=== PATIENT | male | born 1940 | race Caucasian/White ===

== ENCOUNTER → 2016-12-08 | Outpatient (CLI) | payer MEDICARE, BC ==
[~2016-12-08] MED LIST: ASPIRIN EC81 MG PO; BETAPACE (GENER80 MG PO; BIPAP INH; CO Q-10400 MG PO; ELIQUIS5 MG PO; ENTRESTO 24 MG1 EACH PO; ENTRESTO 49 MG1 EACH PO; FLOMAX0.4 MG PO; IRON236 MG PO; LASIX40 MG PO; LEVAQUIN 250 M250 MG PO; LEXAPRO10 MG PO; LIPITOR40 MG PO; LUTEIN20 MG PO; MIDAMOR5 MG PO; NORCO 5-325 TA1 EACH PO; POTASSIUM CHLO20 ME1 PO; PYRIDIUM100 MG PO; SKELAXIN800 MG PO; SOTALOL120 MG PO; TOPROL XL 5050 MG PO; ZAROXOLYN2.5 MG PO
[2016-12-08 09:23] LABS: ALBUMIN 3.9 gm/dL (3.5-5.0); ANION GAP 11.2 (10.0-19.0); CALCIUM 7.8 mg/dL (8.5-10.5); CREATININE 1.3 mg/dL (0.6-1.3); POTASSIUM 4.2 mMol/L (3.7-5.1); TOTAL BILIRUBIN 0.7 mg/dL (0.0-1.5); TOTAL PROTEIN 6.7 g/dL (6.0-8.4)
== END | disposition disaster alternative care site (69) ==
LOC: LNHI 08:58
PROVIDERS: Internal Medicine Cardiovascular Disease
DX: I25.5 Ischemic cardiomyopathy (principal); I50.42 Chronic combined systolic (congestive) and diastolic (congestive) heart failure; I50.9 Heart failure, unspecified

== ENCOUNTER 2016-12-09 11:52 | Day surgery (SDC) | payer MEDICARE, BC ==
[~2016-12-09] VITALS: Ht 172.7 cm; Wt 73.9 kg
--- NOTE | ~2016-12-09 | OR ---
PATIENT'S NAME: PASCALE GUNN [facility] AGE: 76 Y [address] ROOM: [place] [address] LOCATION: [facility] [place] ADMIT DATE: 12/09/2016 OR/Procedure Report DISCHARGE DATE: 12/09/2016 FAMILY PHYSICIAN: Britney Ann MD ATTENDING PHYSICIAN: Jamaal Petersen SURGEON: Jamaal Petersen DO GLASSWARE VERIFIER: DATE OF PROCEDURE: 12/09/2016 PREOPERATIVE DIAGNOSIS: BiV-ICD generator at normal battery depletion. POSTOPERATIVE DIAGNOSIS: BiV-ICD generator at normal battery depletion. PROCEDURE: Removal and exchange of BiV-ICD generator. REFERRING: Gina Lynn MD BRIEF HISTORY: Mr. Gunn is a 76-year-old white male with above-noted diagnosis, had his device placed in 2012. He has been found to have recent development of SUMA, however, normal battery depletion, and he has been brought today for exchange of his device. The previous incision was marked with surgical marker, opened, leads and generator removed from the pocket. The old generator, which is a Medtronic model R058QGW, serial number [id number] was removed and the new generator, which is a [employer] ClearView™ Audioagen YOUNG ADULT LIBRARIAN, model G150, serial #[id number] was connected to the leads and leads are placed into the pocket. Appropriate sensing and pacing was appreciated. Lead thresholds were within normal limits, all less than 1.5, and the incision was closed in a layered fashion. Dressing was applied. He was transferred to the outpatient recovery in stable condition. JAMAAL PETERSEN DO MCB/modl /[id number] d: 12/13/161913 t: 12/14/16 0743, OPERATIVE SUMMARY
[~2016-12-09 11:52] MED LIST changes: -BETAPACE (GENER80 MG PO; -ENTRESTO 24 MG1 EACH PO; -LEVAQUIN 250 M250 MG PO; -NORCO 5-325 TA1 EACH PO; -PYRIDIUM100 MG PO
[2016-12-09 12:58] LABS: BILIRUBIN URINE NEGATIVE (NEGATIVE); BLOOD URINE NEGATIVE /UL (NEGATIVE); COLOR URINE YELLOW (YELLOW); GLUCOSE URINE NEGATIVE (NEGATIVE); KETONE URINE NEGATIVE (NEGATIVE); LEUKOCYTES URINE NEGATIVE /UL (NEGATIVE); NITRITE URINE NEGATIVE (NEGATIVE); PROTEIN URINE NEGATIVE (NEGATIVE); TURBIDITY URINE CLEAR (CLEAR); UROBILINOGEN URINE NORMAL (NORMAL)
[2016-12-09 13:01] LABS: INR - (THERAPEUTIC) 1.06 (0.92-1.07); PROTIME 11.1 SECONDS (9.8-11.4)
[2016-12-09 13:07] LABS: ALBUMIN 4.2 gm/dL (3.5-5.0); CALCIUM 8.4 mg/dL (8.5-10.5); CREATININE 1.3 mg/dL (0.6-1.3); PHOSPHORUS 3.5 mg/dL (2.5-4.9)
[2016-12-09] MEDS ORDERED: NORCO 5-325 TA1 EACH PO (16:07)
[2017-01-10] MEDS ORDERED: NORCO 5-325 TA1 EACH PO (09:39)
[2017-01-10] MEDS ORDERED: PYRIDIUM100 MG PO (09:41)
[2017-01-10] MEDS ORDERED: LEVAQUIN 250 M250 MG PO (09:42)
== END 2016-12-09 16:25 | disposition disaster alternative care site (69) ==
LOC: GSDC 11:52 → GPCU 11:53 → EDSTATUS 12:00 → GPOC 12:00 → GSDC 16:25
PROVIDERS: Thoracic Surgery (Cardiothoracic Vascular Surgery)
PROC: 0JPT0PZ Removal of Cardiac Rhythm Related Device from Trunk Subcutaneous Tissue and Fascia, Open Approach (ICD-10-PCS; principal; 2016-12-09)
PROC: 0JH609Z Insertion of Cardiac Resynchronization Defibrillator Pulse Generator into Chest Subcutaneous Tissue and Fascia, Open Approach (ICD-10-PCS; 2016-12-09)
DX: Z45.02 Encounter for adjustment and management of automatic implantable cardiac defibrillator (principal); I25.5 Ischemic cardiomyopathy
CPT/HCPCS: C1882; J0690; J7030

== ENCOUNTER → 2017-01-10 | Day surgery (SDC) | payer MEDICARE, BC ==
[~2017-01-10] VITALS: Ht 172.7 cm; Wt 71.4 kg
[~2017-01-10] MED LIST changes: +BETAPACE (GENER80 MG PO; +ENTRESTO 24 MG1 EACH PO; +LEVAQUIN 250 M250 MG PO; +NORCO 5-325 TA1 EACH PO; +PYRIDIUM100 MG PO
--- NOTE | ~2017-01-10 | OR ---
PATIENT'S NAME: PASCALE WEISS [facility] AGE: 76 Y [address] ROOM: [place], [place] [address] LOCATION: [facility] [place] ADMIT DATE: 01/10/2017 OR/Procedure Report DISCHARGE DATE: FAMILY PHYSICIAN: Britney Ann MD ATTENDING PHYSICIAN: CHRISTINE YOUNG SURGEON: Christine Young MD MARBLE MACHINE OPERATOR: None. DATE OF PROCEDURE: 01/10/2017 PREOPERATIVE DIAGNOSES: 1. Benign prostatic hyperplasia with bladder outlet obstruction, status post previous laser photovaporization of the prostate. 2. Lower urinary tract symptoms including nocturia, urinary hesitancy, and straining to void. 3. History of elevated PSA. POSTOPERATIVE DIAGNOSES: 1. Benign prostatic hyperplasia with bladder outlet obstruction, status post previous laser photovaporization of the prostate. 2. Lower urinary tract symptoms including nocturia, urinary hesitancy, and straining to void. 3. History of elevated PSA. OPERATION PERFORMED: Cystoscopy with UroLift procedure (prostatic urethral lift). INDICATIONS FOR PROCEDURE: The patient is a pleasant 76-year-old male with history of BPH and lower urinary tract symptoms for which he had underwent a previous laser prostatic vaporization on December 31, 2010. He did quite well following that procedure for period of time but has since developed obstructive symptoms again and on recent cystoscopy was found to have an obstructing prostatic urethra. He had continued symptoms despite pharmacologic therapy with tamsulosin. He was also having quite bothersome nocturia and we did try an anticholinergic, but he was having difficulties with retention on the 1st night trying, so he no longer continued that medication. The patient was explained the risks, benefits, indications, and alternatives to above procedure and wished to proceed and consented freely. DESCRIPTION OF OPERATION: The patient was brought back to the operating room, where he was placed positioned in supine position. Patient identification, procedure site and procedure was then verified. We also did verify that the patient received an IV Levaquin antibiotic within an hour of beginning the procedure. The patient then underwent successful administration of monitored anesthesia care. The patient was then moved and placed in a low lithotomy position. He was then prepped and draped in the usual sterile fashion. I PATIENT'S NAME: PASCALE WEISS [facility] AGE: 76 Y [address] ROOM: [place], [place] [address] LOCATION: [facility] [place] ADMIT DATE: 01/10/2017 OR/Procedure Report DISCHARGE DATE: FAMILY PHYSICIAN: Britney Ann MD ATTENDING PHYSICIAN: CHRISTINE YOUNG then began by advancing a 20-Cymraes cystoscope sheath with long bridge and 0 degree lens per urethra. His anterior urethra was within normal limits. His posterior urethra was notable for moderate bilobar hyperplasia of the prostate. His bladder did have evidence of moderate bladder trabeculation noted throughout. There was no evidence of any bladder tumors, cellules, or diverticula. His ureteral orifices were noted to be in their orthotopic location. He did not have a median prostatic lobe. The cystoscope bridge was then replaced with the UroLift implant delivery device. The first treatment site was the patient's right side approximately 1.5 cm distal to the bladder neck. The distal tip of the delivery device was then angled laterally approximately 20 degrees at this position to compress the lateral lobe. The trigger was pulled thereby deploying a needle containing the implant through the prostate. The needle was then retracted, allowing one end of the implant to be delivered to the capsular surface of the prostate. The implant was then tensioned to assure capsular seating and removal of slack monofilament. The device was then angled back toward midline and slowly advanced proximally until verification with cystoscopy of the monofilament being centered in the delivery bay. With a final triggering, the urethral end piece was then affixed to the monofilament, thereby tailoring the size and tension of the implant. Excess filament was severed with this maneuver. The device was then readvanced into the bladder. The above identical sequence was then repeated on the patient's left side. I then reinspected for successful placement of each implant as well as the degree of lateral lobe obstruction remaining. Two additional implants were delivered just proximal to the verumontanum in the same fashion. Again one on the patient's right side and one on the left. A total of 4 implants were delivered successfully. A final cystoscopy was performed to inspect the location and state of each implant to assure proper seating and location. Final inspection also revealed an open prostatic urethra with irrigation flow turned off. I did leave approximately 200 mL of irrigation fluid in his bladder to assist with his voiding trial. The cystoscope had been removed. The patient was then taken out of the lithotomy position, he was then awoken from monitored anesthesia care, transferred to recovery bed and transported to the recovery room in good condition. COMPLICATIONS: None. DRAINS: None. ESTIMATED BLOOD LOSS: Less than 10 mL. FOLLOWUP PLAN: We will have the patient undergo a voiding trial today in clinic prior to being discharged home. If he successfully passes a trial of void, we will then plan to see him back in Urology Clinic in 2 weeks for followup. PATIENT'S NAME: PASCALE WEISS [facility] AGE: 76 Y [address] ROOM: [place], [place] [address] LOCATION: [facility] [place] ADMIT DATE: 01/10/2017 OR/Procedure Report DISCHARGE DATE: FAMILY PHYSICIAN: Britney Ann MD ATTENDING PHYSICIAN: CHRISTINE YOUNG CHRISTINE YOUNG MD GP/modl /[id number] CC: MD Britney Freire MD d: 01/10/17 1602 t: 01/18/17 0826, OPERATIVE SUMMARY
[2017-01-10 08:34] LABS: BASOPHIL % 0.3 %; EOSINOPHIL # 0.1 K/uL (0.0-0.5); HEMATOCRIT 28.6 % (37.0-53.0); HEMOGLOBIN 9.4 g/dL (11.0-16.0); IMMATURE GRANULOCYTE % 0.3 %; LYMPHOCYTE # 0.8 K/uL (0.8-4.0); LYMPHOCYTE % 13.3 %; MCH 33.1 pg (27.0-34.0); MCHC 32.9 gm/dL (32.0-36.5); MCV 100.7 fl (83.0-98.0); MONOCYTE # 0.6 K/uL (0.0-1.0); MONOCYTE % 9.4 %; MPV 9.9 fl (9.4-12.4); NEUTROPHIL # (ANC) 4.7 K/uL (1.4-9.0); NEUTROPHIL % 75.7 %; NRBC % 0 /100WBC (0-0.00); PLATELET COUNT 126 K/uL (150-450); RBC 2.84 M/uL (3.50-5.50); RDW-CV 14.2 % (11.9-14.6); WBC 6.3 K/uL (4.0-11.0)
[2017-01-10 08:52] LABS: ANION GAP 12.3 (10.0-19.0); CALCIUM 8.1 mg/dL (8.5-10.5); CREATININE 1.6 mg/dL (0.6-1.3); POTASSIUM 3.3 mMol/L (3.7-5.1); TOTAL BILIRUBIN 1.2 mg/dL (0.0-1.5); TOTAL PROTEIN 7.3 g/dL (6.0-8.4)
== END | disposition disaster alternative care site (69) ==
LOC: GPOC 01-09 13:00 → GSDC 07:58 → GPOC 08:00
PROVIDERS: Urology
PROC: 0T7D8DZ Dilation of Urethra with Intraluminal Device, Via Natural or Artificial Opening Endoscopic (ICD-10-PCS; principal; 2017-01-10)
DX: N40.1 Benign prostatic hyperplasia with lower urinary tract symptoms (principal); N13.8 Other obstructive and reflux uropathy; R35.1 Nocturia; R39.11 Hesitancy of micturition; F32.9 Major depressive disorder, single episode, unspecified; K64.9 Unspecified hemorrhoids; R97.20 Elevated prostate specific antigen [PSA]; Z90.79 Acquired absence of other genital organ(s)
CPT/HCPCS: J1956; J2001; J7030; L8699

== ENCOUNTER → 2017-01-24 | Outpatient (CLI) | payer MEDICARE, BC ==
[2017-01-24 14:16] LABS: ANION GAP 12.2 (10.0-19.0); CALCIUM 8.2 mg/dL (8.5-10.5); CREATININE 1.5 mg/dL (0.6-1.3); POTASSIUM 4.2 mMol/L (3.7-5.1); TOTAL PROTEIN 6.8 g/dL (6.0-8.4)
[2017-01-24 14:18] LABS: TOTAL BILIRUBIN 0.8 mg/dL (0.0-1.5)
== END ==
LOC: LNHI 13:47
PROVIDERS: Internal Medicine Interventional Cardiology
DX: I48.0 Paroxysmal atrial fibrillation (principal); I25.5 Ischemic cardiomyopathy

== ENCOUNTER 2017-03-08 15:00 | Observation (INO) | payer MEDICARE, BC ==
[~2017-03-08] VITALS: Ht 165.1 cm; Wt 75.1 kg
--- NOTE | ~2017-03-08 | CON ---
PATIENT'S NAME: PASCALE GUNN [facility] AGE: 76 Y [address] ROOM: [id number] [place], [place] [address] LOCATION: [facility] ADMIT DATE: 03/08/2017 Consultation DISCHARGE DATE: FAMILY PHYSICIAN: Britney Ann MD ATTENDING PHYSICIAN: SARAVANAN KNIGHT REFERRING PHYSICIAN: DIRK RETANA MD REQUESTING PROVIDER: Dr. Joaquin. REASON FOR CONSULTATION: Status post ICD shock. HISTORY OF PRESENTING ILLNESS: The patient is a very pleasant 76-year-old male, who is very well known to me. The last time I saw him in clinic was in January 2017. He has history of nonischemic cardiomyopathy as well as chronic systolic and diastolic heart failure with NYHA Class II symptoms. He has had a history of BiV-ICD that was implanted several years ago. His last device interrogation was on January 31, 2017. He has had history of atrial fibrillation and VFib, status post mitral valve repair. The patient's last heart catheterization was in 2014 where his LAD stent was patent. He had disease in small diagonal branches, for which medical therapy was recommended. He did have mitral valve repair in 2003. His last echocardiogram was done in April 2016 where his left ventricular systolic function was 40%. He had hknk-kr-ytxfaefx mitral annular calcification, mild MR, twxphjka-ib-cqiwbj TR, restrictive diastolic dysfunction, mild pulmonary hypertension with RV systolic pressure of 42, severe right atrial enlargement. He has seen EP recently in [place] in November 2016, where he did have the generator replaced for the BiV-ICD. His atrial lead was capped because it was not capturing well, and also he was noted to be in atrial fibrillation. His last stress test was done in 07/2016 where he had mostly a fixed defect in the inferior and inferolateral acosta without any reversible defect, suggestive of ischemia. Unfortunately, he has been recently diagnosed with large B-cell lymphoma, for which he has an appointment with Dr. Metzger on Monday. The patient has been in his usual state of health, and he had not experienced any chest pain, heaviness, tightness, pressure. He also reports no palpitations or dizziness. He does not have any shortness of breath, PND, orthopnea, or significant lower extremity edema. He has been tolerating all PATIENT'S NAME: PASCALE GUNN [facility] AGE: 76 Y [address] ROOM: [place] [address] LOCATION: [facility] ADMIT DATE: 03/08/2017 Consultation DISCHARGE DATE: FAMILY PHYSICIAN: Britney Ann MD ATTENDING PHYSICIAN: SARAVANAN KNIGHT his medications fairly well without any adverse reactions, and he has been compliant with his medications. He did have lunch earlier today, and he reports that he noted his heart racing and felt dizzy and fell down, and then his defibrillator went off, and they called our clinic, and he was advised to come to the emergency room. The patient is now admitted on telemetry floor. He is completely normal. He reports that after that episode happened, he came back to consciousness fairly quickly; he did not have any aura, no cardiac symptoms after the event, and he is doing very well at this time. No fever, chills, stroke-like symptoms. No changes in his vision or speech or swallowing. No nausea, vomiting, diarrhea, or constipation. PAST MEDICAL HISTORY: 1. Chronic combined systolic and diastolic heart failure. 2. History of syncope. 3. History of atrial fibrillation. 4. History of VFib. 5. Dyslipidemia. 6. Hypertension. 7. Arthritis. 8. Asthma. 9. Chronic interstitial lung disease. 10. Shingles. 11. CKD. PAST SURGICAL HISTORY: Mitral valve repair in 2003. FAMILY HISTORY: No premature coronary artery disease or sudden cardiac . SOCIAL HISTORY: The patient is . He does not smoke. No illicit drug abuse or alcohol abuse. He follows a regular low-fat and low-salt diet. REVIEW OF SYSTEMS: All review of systems discussed with the patient. Pertinent positives and negatives mentioned in the history of presenting illness. PHYSICAL EXAMINATION: VITAL SIGNS: Blood pressure is 120/70, heart rate is in the 60s, underlying rhythm atrial fibrillation, respirations 14, afebrile, O2 sats greater than 90% on room air. HEENT: Sclerae white. Extraocular movements intact. Mucous membranes moist. Head: Atraumatic. PATIENT'S NAME: PASCALE GUNN [facility] AGE: 76 Y [address] ROOM: [place] [address] LOCATION: [facility] ADMIT DATE: 03/08/2017 Consultation DISCHARGE DATE: FAMILY PHYSICIAN: Britney Ann MD ATTENDING PHYSICIAN: SARAVANAN KNIGHT SKIN: Warm and dry. NECK: Supple. HEART: S1, S2. Regular rate and rhythm. A 2/6 systolic murmur at the right lower sternal border. LUNGS: Good air exchange bilaterally. No crackles or wheezing. ABDOMEN: Soft. Bowel sounds positive. EXTREMITIES: Trace lower extremity edema. MUSCULOSKELETAL: Good range of motion. PSYCH: The patient is alert and oriented to time, place, and person, and not in any apparent distress. LABORATORY DATA: EKG: Atrial fibrillation with underlying BiV paced beats. Sodium 140, potassium 4.3, chloride 107, CO2 of 25, BUN 35, creatinine 1.3, and glucose is 99. H and H of 10.1 and 30 and platelets are 118. CPK 93, CK- MB less than 0.04, CK-MB is 3.1. HOME MEDICATIONS: 1. Amiloride 2.5 mg daily. 2. Aspirin 81 daily. 3. CoQ10 400 daily. 4. Eliquis 5 mg p.o. b.i.d. 5. Lasix 40 in the morning and 20 p.r.n. as needed for increased weight gain or increased lower extremity edema. 6. Lexapro 20 daily. 7. Lipitor 40 daily. 8. Lutein 20 daily. 9. Metolazone 2.5 mg half tablet 3 times every 3rd day prior to Lasix. 10. Potassium chloride 20 mEq b.i.d. 11. Sotalol 120 b.i.d. 12. Toprol-XL 25 mg daily. ALLERGIES: DOFETILIDE AND AMIODARONE. DATA: Cardiac cath in 2014 showed ostial diagonal 50%, ostial diagonal II 70% stenosis, small vessels, medical therapy is recommended. Mitral valve repair in 2003. Echocardiogram: LVEF 40%, tpln-or-vrncpueq MAC, mild MR, iomvsdey-pa-bknmjb TR, restrictive diastolic dysfunction, severe right atrial enlargement, mild pulmonary hypertension. RVSP 42 mmHg. Mildly dilated RV. Severely reduced PATIENT'S NAME: PASCALE GUNN [facility] AGE: 76 Y [address] ROOM: [address] [address] LOCATION: [facility] ADMIT DATE: 03/08/2017 Consultation DISCHARGE DATE: FAMILY PHYSICIAN: Britney Ann MD ATTENDING PHYSICIAN: SARAVANAN KNIGHT RV function, mild to moderate dilated RV with device lead in the RV, dilated RVC, this was in 04/2016. BiV-ICD with generator change in 11/2016 with capping of the atrial lead. IMPRESSION: 1. Ventricular fibrillation, status post ICD shock. ON sotalol for h/o VT, may need to reduce the dose of sotalol due to increased QTc. 2. The patient's potassium and magnesium are within normal limits. 3. Syncope secondary to ventricular fibrillation. 4. Cor pulmonale with dilated RV with reduced right ventricular systolic function. Doing well on current diuretics. 5. Chronic combined systolic and diastolic heart failure with NYHA Class II symptoms. Continue current doses of diuretics and the patient appears euvolemic. 6. Coronary artery disease. He is on guideline-directed medical therapy. 7. Atrial fibrillation. Persistent. Discontinue sotalol since his QTc is greater than 500 milliseconds, Please get CT scan of the chest, and if it is negative for bleed, we will continue the Eliquis for atrial fibrillation. 8. Chronic kidney disease. His renal function is actually better today. We will continue the same dose of diuretics for now. 9. Status post mitral valve repair. Stable on latest echo. 10. Mild pulmonary hypertension noted on echo. Continue current medications and diuretic therapy. He is oxygenating well on room air. 11. If the patient does well and does not have any other acute issues, we will discharge him home in the morning. 12. Large B-cell lymphoma that was recently diagnosed. Encouraged to keep appointment with Dr. Metzger on Monday for further treatment and plan. Thank you very much, Dr. Joaquin, for allowing us to participate in the care of Mr. Gunn and for admitting him to your service. DIRK RETANA MD AT/modl /[id number] d: 03/09/17 0243 t: 03/14/17 0806, CONSULTATION REPORT
--- NOTE | ~2017-03-08 | HP ---
PATIENT'S NAME: PASCALE WEISS [facility] AGE: 76 Y [address] ROOM: [address] [place], [place] [address] [facility] ADMIT DATE: 03/08/2017 History & Physical DISCHARGE DATE: FAMILY PHYSICIAN: Britney Ann MD ATTENDING PHYSICIAN: SARAVANAN KNIGHT DATE OF SERVICE: CHIEF COMPLAINT: VFib, status post AICD shock. HISTORY OF PRESENT ILLNESS: The patient is a 76-year-old gentleman with a past medical history of ischemic cardiomyopathy, status post AICD, atrial fibrillation, on Eliquis, history of VFib with AICD shock, and recent diagnosis of large B-cell non-Hodgkin's lymphoma, who presents here with syncope with VFib status post AICD. The patient reports that this afternoon he was sitting down and reading a magazine when he experienced a syncopal event. He reports that he felt a shock before his syncope. Does not remember how much he was out for and the next thing he remembers is when he woke up from the floor. According to his AICD interrogation, VFib shock was done at 1:38 p.m. reports that she saw him around 1:40. The patient denies any chest pain, shortness of breath, fever, chills, productive cough, orthopnea, headache, change in vision, and abdominal pain. The patient reports that he has taken 1-1/2 more of his Lasix 40 mg daily because he was up on his weight yesterday. The patient reports that his last shock was a year and half ago. The patient follows Dr. Pizano, as an outpatient. PAST MEDICAL HISTORY: 1. Ischemic cardiomyopathy, status post AICD. 2. Coronary artery disease, status post stent. 3. Atrial fibrillation, status post Maze procedure, on Eliquis. 4. Hypertension. PAST SURGICAL HISTORY: ICD placement, stent placement in LAD in 2007, left cornea transplant, left knee replacement, Maze procedure. FAMILY HISTORY: Father at 82, complication secondary to spinal stenosis surgery. Mother at 76, secondary to Alzheimer's and stroke. SOCIAL HISTORY: The patient is a retired pharmacist. Drinks 1-2 glasses of red wine daily. He is physically active. He jogs. He denies tobacco use and drug use. PATIENT'S NAME: PASCALE WEISS [facility] AGE: 76 Y [address] ROOM: [place] [address] [facility] ADMIT DATE: 03/08/2017 History & Physical DISCHARGE DATE: FAMILY PHYSICIAN: Britney Ann MD ATTENDING PHYSICIAN: SARAVANAN KNIGHT ALLERGIES: AMIODARONE AND TIKOSYN. MEDICATION: 1. Amiloride 5 mg p.o. daily. 2. Apixaban 5 mg p.o. b.i.d. 3. Aspirin 81 mg daily. 4. Lipitor 40 mg daily. 5. Lexapro 20 mg daily. 6. Ferrous gluconate 260 mg daily. 7. Lasix 40 mg daily. 8. Lutein 20 mg daily. 9. Potassium chloride 20 mEq daily. 10. Sotalol 120 mg b.i.d. 11. The patient also takes CoQ10 enzyme. REVIEW OF SYSTEMS: All systems have been reviewed and are negative except for what is mentioned in the HPI. PHYSICAL EXAMINATION: VITAL SIGNS: Afebrile, blood pressure 142/89, heart rate 70, saturating 95% on room air. GENERAL APPEARANCE: The patient is alert and awake, in no acute distress. EYES: Extraocular muscles intact. Sclerae nonicteric. HEAD: Normocephalic, atraumatic. MOUTH: Moist oral mucosa. EARS: No ear discharge. CHEST: Clear to auscultation bilaterally. HEART: Regular rate and rhythm. No murmurs, rubs, or gallops heard. ABDOMEN: Soft, nontender, and nondistended. Bowel sounds present. CHEST: Clear to auscultation bilaterally. EXTREMITIES: Trace edema. SKIN: Warm to touch. MANAGER PROCESS: The patient is alert and oriented x3. Motor and sensory grossly intact. MUSCULOSKELETAL: Range of motion intact. No obvious joint effusions. LABORATORY DATA: EKG: EKG shows vent pacing with no obvious ischemic changes. No ST elevation noted. QTc of 511 milliseconds. ASSESSMENT AND PLAN: 1. Ventricular fibrillation, status post BiV shock. Etiology unknown currently, but working diagnosis, one of them is the patient has elevated PATIENT'S NAME: PASCALE WEISS [facility] AGE: 76 Y [address] ROOM: [place] [address] [facility] ADMIT DATE: 03/08/2017 History & Physical DISCHARGE DATE: FAMILY PHYSICIAN: Britney Ann MD ATTENDING PHYSICIAN: SARAVANAN KNIGHT A QTc of 511 milliseconds. We will acquire electrolytes including magnesium and potassium; to keep magnesium greater than 2, to keep potassium greater than 4. We will hold sotalol as sotalol can increase QTc. Also we will rule out ischemic etiology. We will trend troponin x3. I suspect the initial troponin to be elevated since the patient was shocked recently. However, we will trend troponin. The patient is currently asymptomatic. Denies having chest pain now or upon presentation and also we will follow with serial EKGs. Discussed case with Dr. Pizano, cut in station operator. 2. Syncope, secondary to problem #1. 3. Ischemic cardiomyopathy, status post CARTOON ARTIST-D. Continue current medication. We will hold Lasix for now until we re-evaluate the patient's potassium level. Also the patient looks compensated. 4. Hypertension, stable. Continue medication except Lasix. 5. History of coronary artery disease, status post stent. Continue aspirin and Lipitor. 6. History of atrial fibrillation. Currently the patient appears to be in persistent atrial fibrillation. No P-wave noted on EKG. Currently on rate control. We will hold sotalol for now as the patient has elevated QTc and presenting with VFib. Continue Eliquis. We will consider use of beta-kierra upon discharge, as the patient also has ischemic cardiomyopathy and history of CAD if sotalol is discontinued. 7. Fall. We will acquire CT head as the patient is on Eliquis and aspirin to rule out head bleed. 8. Recent history of large B-cell non-Hodgkin's lymphoma. The patient is scheduled to see Dr. Crowell, as an outpatient next week to follow up as outpatient. Greater than 70 minutes were spent on the patient's care. Greater than 50% of time was spent on direct care. Case was discussed with Dr. Pizano. Case was also discussed with family and the patient. All questions were answered with satisfaction. CODE STATUS: As discussed on admission, code status is full code. MATTHEW GILLETTE MD DA/nellyl /[id number] D: [id number] T: [id number] HISTORY & PHYSICAL
--- NOTE | ~2017-03-08 | DS ---
PATIENT'S NAME: [facility] AGE: 76 Y [address] ROOM: [address] [place], [place] [address] LOCATION: GPCU ADMIT DATE: 03/08/2017 Discharge Summary DISCHARGE DATE: 03/09/2017 FAMILY PHYSICIAN: Britney Ann MD ATTENDING PHYSICIAN: Donna Alvarez ADMISSION DIAGNOSIS: Ventricular fibrillation status post implantable cardioverter-defibrillator shock. DISCHARGE DIAGNOSIS: Ventricular fibrillation status post automatic implantable cardioverter-defibrillator shock. SECONDARY DIAGNOSES: 1. Ischemic cardiomyopathy. 2. Hypertension. 3. History of coronary artery disease. 4. Recent history of diagnosis of large B-cell non-Hodgkin's lymphoma. PROCEDURE PERFORMED: Cardiac resynchronization therapy defibrillator (SERGEANT AT ARMS-D) interrogation. CONSULTATIONS: Cardiology. HISTORY OF PRESENT ILLNESS: The patient is a 76-year-old gentleman with past medical history of ischemic cardiomyopathy, status post SERGEANT AT ARMS-D; atrial fibrillation, on Eliquis; history of ventricular fibrillation with ICD shock and recent history of large B-cell non-Hodgkin's lymphoma, who presents here with syncope and ventricular fibrillation status post ICD. The patient reported that he was sitting down and reading magazine when he experienced syncopal event. He felt shock before his syncope. He does not remember much afterwards. According to his AICD interrogation, the shock was done at 1:38 p.m. reports that she saw him around 0140 hours. The patient denies any chest pain, shortness of breath, fever, chills, productive cough, orthopnea, headache, change in vision, or abdominal pain. HOSPITAL COURSE: The patient was admitted for observation. A CT head was done, as patient had a fall while on Eliquis. CT shows no signs of acute intracranial abnormality. EKG was done and shows QTc elongation of 511. Cardiology was consulted. Troponin was trended. Troponin x3 is negative. The patient denied having chest pain during his stay. The patient's sotalol was held and was changed to 80 mg b.i.d. from 120 mg b.i.d. Repeat EKG was done and EKG was stable. Cardiology saw the patient during his stay and increased his Toprol-XL to 50 mg daily. The patient was stable and is okay from a Cardiology standpoint to be discharged to home and to follow up with PATIENT'S NAME: [facility] AGE: 76 Y [address] ROOM: [id number] [place], [place] [address] [facility] ADMIT DATE: 03/08/2017 Discharge Summary DISCHARGE DATE: 03/09/2017 FAMILY PHYSICIAN: Britney Ann MD ATTENDING PHYSICIAN: Donna Alvarez EP physician, Dr. Henderson and with Dr. Gina Lynn as outpatient. The patient also has a recent history and diagnosis of large B-cell lymphoma. The patient is scheduled to follow up with Dr. Metzger next week. CONDITION: Stable. DISPOSITION: Home. DISCHARGE MEDICATION: Please see MAR. DISCHARGE INSTRUCTIONS: To visit to next emergency department, if the patient has chest pain, syncope, shock, shortness of breath, fever, cough, or dizziness. FOLLOW-UP PLAN: To follow up with Cardiology, Electrophysiology, and oncologist. PHYSICAL EXAMINATION: VITAL SIGNS: Stable. HEENT: Head; normocephalic and atraumatic. Eyes; extraocular muscles intact. HEART: Regular rate and rhythm. No murmurs, rubs, or gallops. LUNGS: Clear to auscultation bilaterally. ABDOMEN: Soft, nontender, and nondistended. Bowel sounds present. EXTREMITIES: No edema. EPOXY FABRICATION SUPERVISOR: The patient is alert and awake. Motor and sensory are grossly intact. Greater than 30 minutes were spent on discharge planning. MD ZOE GREEN/izabel /[id number] d: 03/10/17 1456 t: 03/14/17 0617, DISCHARGE SUMMARY
[~2017-03-08 15:00] MED LIST changes: -BETAPACE (GENER80 MG PO; -ENTRESTO 24 MG1 EACH PO
--- NOTE | 2017-03-08 16:04 | NUR ---
Pt is 76 y/o male admit for debifrillator discharge and syncope for hospitalist. Pt alert and oriented x3. Resides with at home. Allergies to amiodarone and tikosyn. Red and yellow bracelet. Hx CHF,stents,afib,htn,murmur,sleep apnea-wears Bipap,scoliosis,arthritis, depression,Non-hodgkins lymphoma-recently dx'd,renal insuffic,BPH,dif.w stream. Pt states he was sitting on couch at home and leaned forward,passed out and defib discharged. Defib hasn't discharged since 2014. Came through ED.
[2017-03-08 16:28] LABS: BASOPHIL % 0.4 %; EOSINOPHIL # 0.1 K/uL (0.0-0.5); EOSINOPHIL % 2.8 %; HEMOGLOBIN 10.1 g/dL (11.0-16.0); IMMATURE GRANULOCYTE % 0.2 %; LYMPHOCYTE % 18.8 %; MCH 34.6 pg (27.0-34.0); MCHC 33.7 gm/dL (32.0-36.5); MCV 102.7 fl (83.0-98.0); MONOCYTE # 0.5 K/uL (0.0-1.0); MONOCYTE % 8.9 %; MPV 9.8 fl (9.4-12.4); NEUTROPHIL # (ANC) 3.5 K/uL (1.4-9.0); NEUTROPHIL % 68.9 %; NRBC % 0 /100WBC (0-0.00); PLATELET COUNT 118 K/uL (150-450); RBC 2.92 M/uL (3.50-5.50); RDW-CV 14.6 % (11.9-14.6)
[2017-03-08 16:46] LABS: ALBUMIN 3.7 gm/dL (3.5-5.0); ANION GAP 12.3 (10.0-19.0); CALCIUM 8.3 mg/dL (8.5-10.5); CREATININE 1.3 mg/dL (0.6-1.3); MAGNESIUM 2.6 mg/dL (1.8-2.6); POTASSIUM 4.3 mMol/L (3.7-5.1)
[2017-03-08 16:52] LABS: TOTAL BILIRUBIN 0.5 mg/dL (0.0-1.5)
[2017-03-08 17:00] LABS: CPK 93 IU/L (35-332)
--- NOTE | 2017-03-08 19:11 | NUR ---
Significant Event: ARRIVED TO UNIT IN PACED RHYTHM WITH HR 70'S. BP 150/94-118. ON RA. A/O X3. NO C/O PAIN. HX PACER LAST FIRING IN 2014. EKG DONE AND DR KRAFT CONSULTED. LABS COMPLETE WITH ELECTROLYTES WNL AND SERIAL CARDIAC ENZYMES TO BE CHECKED Q6HR. CT OF HEAD DONE D/T FALL AT HOME WHEN PATIENT STATES HE "PASSED OUT" AND AWAKENED ON FLOOR. RESULTS PENDING AND ELIQUIS ON HOLD UNTIL RESULTS FINAL OF CT. OK TO USE HOME BIPAP AT NIGHT PER HOME SETTINGS. PIV TO R)HAND SL'D. Follow up: ORDER TO PRINT DC MEDS IN AM. MONITOR PER PLAN OF CARE
[2017-03-08 20:55] LABS: CPK 102 IU/L (35-332)
--- NOTE | 2017-03-09 03:52 | NUR ---
Pt A&Ox4. VSS on RA, wears home BiPap at noc, paced rhythm. Pt denies any pain, SOB, dizziness, and other cardiac symptoms throught shift. Up with SBA. Voiding and taking PO without issue.
[2017-03-09 04:54] LABS: ALBUMIN 3.5 gm/dL (3.5-5.0); ANION GAP 12.2 (10.0-19.0); CALCIUM 8.1 mg/dL (8.5-10.5); CREATININE 1.1 mg/dL (0.6-1.3); MAGNESIUM 2.5 mg/dL (1.8-2.6); POTASSIUM 4.2 mMol/L (3.7-5.1); TOTAL BILIRUBIN 0.6 mg/dL (0.0-1.5); TOTAL PROTEIN 6.6 g/dL (6.0-8.4)
[2017-03-09 04:59] LABS: CPK 110 IU/L (35-332)
--- NOTE | 2017-03-09 11:30 | NUR ---
Introduced self and role of care management to patient. Patient lives in [place] with his . Patient plans home today. He denies discharge needs at this time.
[2017-03-09] MEDS ORDERED: TOPROL XL 5050 MG PO (13:20)
[2017-03-09] MEDS ORDERED: ENTRESTO 24 MG1 EACH PO (13:22)
[2017-03-09] MEDS ORDERED: BETAPACE (GENER80 MG PO (13:23)
--- NOTE | 2017-03-09 14:23 | NUR ---
Patient A/Ox3. VSS on RA. Showered with family assist this morning. No c/o pain, dizziness or lightheadedness. HR 70 paced. PIV to R)hand discontinued. Patient started on lower dose of sotolol. Follow up appointments made by the prior to discharge. Patient and state understanding of education. Transfered to private vehicle via at 1420.
== END 2017-03-09 14:29 | disposition disaster alternative care site (69) ==
LOC: GPCU 15:07
PROVIDERS: Internal Medicine; ADMIT Internal Medicine
DX: I97.89 Other postprocedural complications and disorders of the circulatory system, not elsewhere classified (principal); I49.01 Ventricular fibrillation; T81.19XA Other postprocedural shock, initial encounter; I25.5 Ischemic cardiomyopathy; I25.10 Atherosclerotic heart disease of native coronary artery without angina pectoris; I48.91 Unspecified atrial fibrillation; M19.90 Unspecified osteoarthritis, unspecified site; J45.909 Unspecified asthma, uncomplicated; I13.0 Hypertensive heart and chronic kidney disease with heart failure and stage 1 through stage 4 chronic kidney disease, or unspecified chronic kidney disease; N18.9 Chronic kidney disease, unspecified; I50.42 Chronic combined systolic (congestive) and diastolic (congestive) heart failure; I27.2 Other secondary pulmonary hypertension; C85.10 Unspecified B-cell lymphoma, unspecified site; Z96.652 Presence of left artificial knee joint; Z98.890 Other specified postprocedural states; Z79.891 Long term (current) use of opiate analgesic; Z79.82 Long term (current) use of aspirin; Z79.01 Long term (current) use of anticoagulants; Z79.899 Other long term (current) drug therapy; Z88.8 Allergy status to other drugs, medicaments and biological substances; Y83.8 Other surgical procedures as the cause of abnormal reaction of the patient, or of later complication, without mention of misadventure at the time of the procedure

== ENCOUNTER → 2017-03-22 | Outpatient (CLI) | payer MEDICARE, BC ==
[~2017-03-22] MED LIST changes: +BETAPACE (GENER80 MG PO; +ENTRESTO 24 MG1 EACH PO
== END | disposition disaster alternative care site (69) ==
LOC: GKIC 11:31
DX: C83.39 Diffuse large B-cell lymphoma, extranodal and solid organ sites (principal)
CPT/HCPCS: A9552